=== PATIENT | female | born 1985 | race Two or more races ===

== ENCOUNTER → 2019-03-15 | Outpatient (CLI) | payer OTHER | END | disposition home or self-care (01) | LOC: PRENATAL 15:30 | DX: O30.92 Multiple gestation, unspecified, second trimester (principal); O35.3XX1 Maternal care for (suspected) damage to fetus from viral disease in mother, fetus 1; O35.3XX2 Maternal care for (suspected) damage to fetus from viral disease in mother, fetus 2; Z36.0 Encounter for antenatal screening for chromosomal anomalies; Z3A.19 19 weeks gestation of pregnancy ==

== ENCOUNTER 2020-07-01 11:22 | Outpatient (CLI) | payer OTHER | END 2020-07-01 11:32 | disposition home or self-care (01) | LOC: LAB 11:22 | PROVIDERS: ATTEND Urology | DX: Z20.828 Contact with and (suspected) exposure to other viral communicable diseases (principal) ==